=== PATIENT | female | born 1945 | race African-American/Black ===

== ENCOUNTER 2023-09-09 20:52 | Emergency (ER) | payer OTHER ==
[2023-09-09 21:12] VITALS: BMI 25.8
[2023-09-09 22:13] LABS: HEMATOCRIT 35.1 % (32.4-45.2); HEMOGLOBIN 11.6 GM/dL (10.7-15.3); MCH 34.9 pg (25.7-33.7); MCHC 33.1 g/dl (32.0-36.0); MEAN CELL VOLUME 105.3 fl (80-96); MEAN PLT VOLUME 8.9 fl (7.5-11.1); PLATELET COUNT 182 10^3/uL (134-434); RBC 3.33 M/mm3 (3.60-5.2); RDW 14.2 % (11.6-15.6); WHITE BLOOD COUNT 11.9 K/mm3 (4.0-10.0)
[2023-09-09 22:24] LABS: BLOOD UREA NITROGEN 26.9 mg/dL (7-18); CALCIUM 8.3 mg/dL (8.5-10.1)
[2023-09-09 22:25] LABS: ALBUMIN 3.4 g/dl (3.4-5.0)
[2023-09-09 22:28] LABS: CREATININE 2.2 mg/dL (0.55-1.3); TOT PROT 6.6 g/dl (6.4-8.2)
[2023-09-09 22:33] LABS: N-TERMINAL BNP 2092.4 pg/ml (5-450)
[2023-09-09] MEDS: DEXTROSE 50%-WATER - 25 GM/50 ML VIAL IVPUSH ONE (22:42)
[2023-09-09] MEDS: INSULIN REGULAR HUMAN 100 UNITS/ML *VIAL IVPUSH ONE (22:42)
[2023-09-09] MEDS: DEXTROSE 50%-WATER 25 GM/50 ML DISP.SYRIN IVPUSH ONE (22:42)
[2023-09-09] MEDS: CALCIUM GLUCONATE 10% - 1,000 MG/10 ML VIAL IVPB ONE (22:42)
[2023-09-09] MEDS: LACTATED RINGERS SOLUTION 1000 ML INFUS.BAG IV ONE (23:13)
[2023-09-09] MEDS ORDERED: NOREPINEPHRINE BITARTRATE 16,000 MCG in SODIUM CHLORIDE 484 ML IV SCH (23:15)
[2023-09-09 23:18] LABS: INR 1.13 (0.83-1.09); PROTHROMBIN TIME (PATIENT) 12.7 SEC (9.7-13.0)
[2023-09-09 23:21] LABS: ACTIVATED PTT 25.3 SECONDS (25.2-36.5)
[2023-09-09] MEDS: HYDROCORTISONE SOD SUCCINATE 100 MG/2 ML VIAL IVPB ONE (23:29)
[2023-09-09 23:45] LABS: ANISOCYTOSIS 1+; MACROCYTOSIS 0
[2023-09-10] MEDS: GLUCAGON 1 MG KIT IVPUSH ONE (00:08)
[2023-09-10 00:10] VITALS: BP 145/84; PULSE 44; RESP 21; TEMP 97.7
== END 2023-09-10 00:18 | disposition short-term general hospital (02) ==
LOC: JER 20:52
PROC: 3E033GC Introduction of Other Therapeutic Substance into Peripheral Vein, Percutaneous Approach (ICD-10-PCS; principal; 2023-09-09)
PROC: 3E033GC Introduction of Other Therapeutic Substance into Peripheral Vein, Percutaneous Approach (ICD-10-PCS; 2023-09-09)
PROC: 3E033GC Introduction of Other Therapeutic Substance into Peripheral Vein, Percutaneous Approach (ICD-10-PCS; 2023-09-09)
PROC: 3E033GC Introduction of Other Therapeutic Substance into Peripheral Vein, Percutaneous Approach (ICD-10-PCS; 2023-09-09)
PROC: 3E033VG Introduction of Insulin into Peripheral Vein, Percutaneous Approach (ICD-10-PCS; 2023-09-09)
DX: R00.1 Bradycardia, unspecified (principal); R55 Syncope and collapse; R42 Dizziness and giddiness; R11.2 Nausea with vomiting, unspecified; Z20.822 Contact with and (suspected) exposure to COVID-19
CPT/HCPCS: 0241U-QW; 36415; 71045-TC-FY; 76604; 76705-TC; 80053; 82962; 83880; 84439; 84443; 84484; 85025; 85610; 85730; 86850; 86900; 86901; 93005; 93010; 93308; 99291

== ENCOUNTER 2023-09-16 15:06 | Observation (INO) | payer OTHER ==
[2023-09-16 16:17] LABS: BASO % 0.7 % (0-2.0); EOS % 0.3 % (0-4.5); HEMATOCRIT 34.3 % (32.4-45.2); HEMOGLOBIN 11.8 GM/dL (10.7-15.3); LYMPH % 17.6 % (8-40); MCH 35.1 pg (25.7-33.7); MCHC 34.4 g/dl (32.0-36.0); MEAN PLT VOLUME 7.8 fl (7.5-11.1); MONO % 12.1 % (3.8-10.2); NEUT % 69.3 % (42.8-82.8); PLATELET COUNT 193 10^3/uL (134-434); RBC 3.36 M/mm3 (3.60-5.2); RDW 13.3 % (11.6-15.6); WHITE BLOOD COUNT 6.2 K/mm3 (4.0-10.0)
[2023-09-16 16:36] LABS: POTASSIUM 3.8 mmol/L (3.5-5.1)
[2023-09-16 16:38] LABS: CALCIUM 8.7 mg/dL (8.5-10.1)
[2023-09-16 16:39] LABS: ALBUMIN 3.6 g/dl (3.4-5.0); BLOOD UREA NITROGEN 15.5 mg/dL (7-18)
[2023-09-16 16:42] LABS: CREATININE 0.9 mg/dL (0.55-1.3)
[2023-09-16 16:43] LABS: BILIRUBIN,TOTAL 0.5 mg/dL (0.2-1); TOT PROT 6.8 g/dl (6.4-8.2)
[2023-09-16 17:04] LABS: INR 1.08 (0.83-1.09); PROTHROMBIN TIME (PATIENT) 12.2 SEC (9.7-13.0)
[2023-09-16 17:07] LABS: ACTIVATED PTT 27.1 SECONDS (25.2-36.5)
[2023-09-16] MEDS ORDERED: MAGNESIUM SULFATE IN WATER 2 GM/50 ML IVPB IVPB ONE (18:22)
[2023-09-16] MEDS: MAGNESIUM SULFATE IN WATER 2 GM/50 ML IVPB IVPB ONE (18:26)
[2023-09-16] MEDS ORDERED: METOPROLOL TARTRATE 5 MG/5 ML VIAL ONE (20:50)
[2023-09-16] MEDS: METOPROLOL TARTRATE 5 MG/5 ML VIAL IVPUSH ONE (20:55)
[2023-09-16] MEDS ORDERED: DOCUSATE SODIUM 100 MG CAPSULE (FP) PO PRN (22:11)
[2023-09-16] MEDS ORDERED: ACETAMINOPHEN 325 MG TABLET (FP) PO PRN (22:11)
[2023-09-16] MEDS ORDERED: METOPROLOL TARTRATE 25 MG TABLET (FP) ONE (22:59)
[2023-09-16] MEDS: METOPROLOL TARTRATE 25 MG TABLET (FP) PO ONE (23:10)
[2023-09-17] MEDS ORDERED: cloNIDine HCL 0.1 MG TABLET ONE ×2 (02:46→09:09)
[2023-09-17] MEDS: cloNIDine HCL 0.1 MG TABLET PO SCH (02:50)
[2023-09-17] MEDS: VERAPAMIL HCL 240 MG E.R. TABLET PO ONE (02:50)
[2023-09-17 07:26] LABS: BASO % 0.6 % (0-2.0); EOS % 1.5 % (0-4.5); HEMATOCRIT 34.1 % (32.4-45.2); HEMOGLOBIN 11.8 GM/dL (10.7-15.3); LYMPH % 17.1 % (8-40); MCH 35.5 pg (25.7-33.7); MCHC 34.7 g/dl (32.0-36.0); MEAN CELL VOLUME 102.3 fl (80-96); MEAN PLT VOLUME 8.4 fl (7.5-11.1); MONO % 12.6 % (3.8-10.2); NEUT % 68.2 % (42.8-82.8); PLATELET COUNT 218 10^3/uL (134-434); RBC 3.34 M/mm3 (3.60-5.2); RDW 13.3 % (11.6-15.6); WHITE BLOOD COUNT 7.5 K/mm3 (4.0-10.0)
[2023-09-17 07:39] LABS: POTASSIUM 3.9 mmol/L (3.5-5.1)
[2023-09-17 07:45] LABS: CALCIUM 8.2 mg/dL (8.5-10.1)
[2023-09-17 07:46] LABS: BLOOD UREA NITROGEN 11.5 mg/dL (7-18)
[2023-09-17 07:49] LABS: CREATININE 0.7 mg/dL (0.55-1.3)
[2023-09-17] MEDS ORDERED: POLYETHYLENE GLYCOL (HEALTHYLAX) 3350 17 GM PACKET ONE (10:24)
[2023-09-17] MEDS: POLYETHYLENE GLYCOL (HEALTHYLAX) 3350 17 GM PACKET PO SCH (10:27)
[2023-09-17] MEDS: HYDROCORTISONE 2.5% TOPICAL CREAM 30 GM TUBE RC SCH (11:43)
[2023-09-17 16:16] LABS: ALBUMIN 3.4 g/dl (3.4-5.0)
[2023-09-17 16:19] LABS: BILIRUBIN,DIRECT 0.2 mg/dL (0.0-0.2)
[2023-09-17 16:21] LABS: BILIRUBIN,TOTAL 0.5 mg/dL (0.2-1); TOT PROT 6.4 g/dl (6.4-8.2)
[2023-09-17] MEDS: ATORVASTATIN CA 40 MG TABLET (FP) PO SCH (22:33)
[2023-09-18 01:23] VITALS: BMI 26.9
[2023-09-18 07:58] LABS: BASO % 0.7 % (0-2.0); EOS % 2.3 % (0-4.5); HEMATOCRIT 35.1 % (32.4-45.2); HEMOGLOBIN 11.7 GM/dL (10.7-15.3); MCH 34.7 pg (25.7-33.7); MCHC 33.4 g/dl (32.0-36.0); MEAN CELL VOLUME 104.1 fl (80-96); MEAN PLT VOLUME 8.6 fl (7.5-11.1); MONO % 12.7 % (3.8-10.2); NEUT % 62.3 % (42.8-82.8); PLATELET COUNT 227 10^3/uL (134-434); RBC 3.38 M/mm3 (3.60-5.2); RDW 13.3 % (11.6-15.6); WHITE BLOOD COUNT 6.1 K/mm3 (4.0-10.0)
[2023-09-18 08:29] LABS: CALCIUM 8.3 mg/dL (8.5-10.1)
[2023-09-18 08:30] LABS: ALBUMIN 3.4 g/dl (3.4-5.0); BLOOD UREA NITROGEN 10.7 mg/dL (7-18)
[2023-09-18 08:33] LABS: CREATININE 0.7 mg/dL (0.55-1.3)
[2023-09-18 08:35] LABS: BILIRUBIN,TOTAL 0.5 mg/dL (0.2-1); TOT PROT 6.5 g/dl (6.4-8.2)
[2023-09-18] MEDS: ENOXAPARIN NA (PORCINE) 80 MG/0.8 ML DISP.SYRIN SQ SCH (09:58)
[2023-09-18] MEDS ORDERED: metoPROLOL SUCCINATE 25 MG TAB.SR.24H (FP) PO SCH (10:00)
[2023-09-19 07:12] LABS: HEMATOCRIT 33.9 % (32.4-45.2); HEMOGLOBIN 11.5 GM/dL (10.7-15.3); MCH 34.9 pg (25.7-33.7); MCHC 33.8 g/dl (32.0-36.0); MEAN CELL VOLUME 103.3 fl (80-96); MEAN PLT VOLUME 7.8 fl (7.5-11.1); PLATELET COUNT 239 10^3/uL (134-434); RBC 3.28 M/mm3 (3.60-5.2); RDW 13.4 % (11.6-15.6); WHITE BLOOD COUNT 5.8 K/mm3 (4.0-10.0)
[2023-09-19] MEDS: VALSARTAN 80 MG TABLET PO SCH (10:24)
[2023-09-19] MEDS: APIXABAN 5 MG TABLET PO SCH (10:25)
[2023-09-20] MEDS: VALSARTAN 80 MG TABLET PO SCH (10:43)
[2023-09-22 10:33] VITALS: BP 154/119; PULSE 118; RESP 18; TEMP 97.5
== END 2023-09-22 17:45 | disposition home or self-care (01) ==
LOC: JER 15:06 → JERBED 19:49 → UNDOADMOB 22:11 → INTOOBSV 22:11 → JERBED 22:11 → J4W 09-17 21:16
PROVIDERS: ADMIT Internal Medicine; ATTEND Family Medicine
PROC: 3E023GC Introduction of Other Therapeutic Substance into Muscle, Percutaneous Approach (ICD-10-PCS; principal; 2023-09-16)
PROC: 3E033GC Introduction of Other Therapeutic Substance into Peripheral Vein, Percutaneous Approach (ICD-10-PCS; 2023-09-16)
DX: I48.91 Unspecified atrial fibrillation (principal); F10.90 Alcohol use, unspecified, uncomplicated; I10 Essential (primary) hypertension; R00.1 Bradycardia, unspecified; K76.0 Fatty (change of) liver, not elsewhere classified; E78.5 Hyperlipidemia, unspecified; K62.5 Hemorrhage of anus and rectum; R91.8 Other nonspecific abnormal finding of lung field; R94.5 Abnormal results of liver function studies; I34.0 Nonrheumatic mitral (valve) insufficiency; K64.9 Unspecified hemorrhoids
CPT/HCPCS: 0241U-QW; 36415; 71045-TC-FY; 71275-TC; 76705-TC; 80048; 80053; 80076; 82550; 82728; 83516; 83540; 83550; 83735; 83880; 84439; 84443; 84484; 85025; 85027; 85610; 85730; 86038; 86704; 86708; 86803; 87340; 87517; 93005; 93010; 93971-TC; 96365; 96372; 96375; 99285-25; G0378; Q9967